=== PATIENT | female | born 2000 | race African-American/Black ===

== ENCOUNTER 2022-11-12 21:45 | Emergency (ER) | payer BC ==
[2022-11-12] MEDS ORDERED: diphenhydrAMINE 50 MG/ML SDV IVPUSH ONE (21:47)
[2022-11-12] MEDS ORDERED: Famotidine 20 MG/2 ML SDV IVPUSH ONE (21:47)
[2022-11-12] MEDS ORDERED: Sodium Chloride 0.9% 1,000 ML IV ONE (21:47)
[2022-11-12] MEDS ORDERED: methylPREDNISolone Sodium Succinate 125 MG/2 ML SDV IVPUSH ONE (21:47)
[2022-11-12] MEDS ORDERED: Ondansetron 4 MG/2 ML SDV IVPUSH ONE (21:56)
== END 2022-11-12 23:17 | disposition home or self-care (01) ==
LOC: MW.ED 21:45
DX: T78.1XXA Other adverse food reactions, not elsewhere classified, initial encounter (principal); Z91.018 Allergy to other foods
CPT/HCPCS: 96361; 96374; 96375; 99284; J1200; J2405; J2930; J3490; J7030

== ENCOUNTER 2023-10-12 21:48 | Emergency (ER) | payer OTHER ==
[2023-10-12] MEDS: Famotidine 20 MG Tab PO ONE (23:06)
[2023-10-12] MEDS: Cetirizine 10 MG Tab PO ONE (23:06)
[2023-10-12] MEDS: Dexamethasone 4 MG Tab PO ONE (23:46)
== END 2023-10-12 23:50 | disposition home or self-care (01) ==
LOC: MW.ED 21:48
DX: T78.40XA Allergy, unspecified, initial encounter (principal); Z91.013 Allergy to seafood; Z79.899 Other long term (current) drug therapy
CPT/HCPCS: 81025; 99283; A9270; J8540

== ENCOUNTER 2023-10-14 20:48 | Emergency (ER) | payer SELFPAY | END 2023-10-14 22:22 | disposition left against medical advice (07) | LOC: MW.ED 20:48 | DX: Z53.21 Procedure and treatment not carried out due to patient leaving prior to being seen by health care provider (principal) ==

== ENCOUNTER 2023-10-15 23:40 | Emergency (ER) | payer OTHER ==
[2023-10-16] MEDS: Mupirocin Oint 22 GM Tube TOP ONE (03:03)
[2023-10-16] MEDS: predniSONE 20 MG Tab PO ONE (03:03)
[2023-10-16] MEDS: diphenhydrAMINE 50 MG Cap PO ONE (03:03)
== END 2023-10-16 03:17 | disposition home or self-care (01) ==
LOC: MW.ED 23:40
DX: T78.40XA Allergy, unspecified, initial encounter (principal); Z79.899 Other long term (current) drug therapy; Z91.013 Allergy to seafood
CPT/HCPCS: 99283; A9270

== ENCOUNTER 2023-10-29 17:18 | Emergency (ER) | payer OTHER ==
[2023-10-29 17:34] LABS: BASOPHILS ABSOLUTE AUTO 0.07 K/uL (0.00-0.20); EOSINOPHILS ABSOLUTE AUTO 0.57 K/uL (0.00-0.45); EOSINOPHILS PERCENT AUTO 7.8 % (0.0-6.0); HEMATOCRIT 41.3 % (37.0-47.0); HEMOGLOBIN 14.2 g/dL (12.0-16.0); IMMATURE GRAN ABSOLUTE AUTO 0.02 K/uL (0.00-0.05); IMMATURE GRAN PERCENT AUTO 0.3 % (0.0-0.4); LYMPHOCYTES ABSOLUTE AUTO 2.43 K/uL (1.00-4.80); LYMPHOCYTES PERCENT AUTO 33.1 % (24.0-44.0); MEAN CORPUSCULAR HEMOGLOBIN 30.3 pg (28.0-32.0); MEAN CORPUSCULAR HGB CONC 34.4 g/dL (32.0-36.0); MEAN CORPUSCULAR VOLUME 88.1 fL (83.0-99.0); MEAN PLATELET VOLUME 11.3 fL (9.4-12.3); MONOCYTES ABSOLUTE AUTO 0.51 K/uL (0.00-0.80); MONOCYTES PERCENT AUTO 6.9 % (0.0-8.0); NEUTROPHILS ABSOLUTE AUTO 3.75 K/uL (1.80-7.70); NEUTROPHILS PERCENT AUTO 50.9 % (41.0-71.0); PLATELET COUNT,PLT 203 K/uL (150-400); RED BLOOD CELL COUNT 4.69 M/uL (4.10-5.30); WHITE BLOOD CELL COUNT,WBC 7.35 K/uL (3.9-11.3)
[2023-10-29] MEDS: Ketorolac 30 MG/ML SDV IVPUSH ONE (17:39)
[2023-10-29] MEDS: Ondansetron 4 MG/2 ML SDV IVPUSH ONE (17:40)
[2023-10-29] MEDS: Sodium Chloride 0.9% 1,000 ML IV ONE (17:40)
[2023-10-29 18:08] LABS: BLOOD UREA NITROGEN,BUN 6 mg/dL (7.0-18.0); CALCIUM 9.7 mg/dL (8.5-10.1); CARBON DIOXIDE,CO2 27.8 mmol/L (21.0-32.0); CHLORIDE,CL 101 mmol/L (98-107); CREATININE 0.7 mg/dL (0.6-1.0); EST CRCL DRUG DOSING (CG) 117.35 mL/min; GLUCOSE RANDOM 102 mg/dL (74-106); POTASSIUM,K 4.3 mmol/L (3.5-5.1); SODIUM,NA 138 mmol/L (136-145)
[2023-10-29 18:13] LABS: ESTIMATED GFR 125 mL/min (>60)
== END 2023-10-29 19:12 | disposition home or self-care (01) ==
LOC: MW.ED 17:18
DX: R55 Syncope and collapse (principal); R07.9 Chest pain, unspecified; Z79.899 Other long term (current) drug therapy; Z91.013 Allergy to seafood; Z91.018 Allergy to other foods; Z75.8 Other problems related to medical facilities and other health care
CPT/HCPCS: 36415; 71045; 80048; 81025; 84484; 85025; 93005; 96361; 96374; 96375; 99285; J1885; J2405; J7030; 93010; 99284

== ENCOUNTER 2024-01-20 00:38 | Emergency (ER) | payer SELFPAY ==
[2024-01-20 01:07] LABS: BASOPHILS ABSOLUTE AUTO 0.05 K/uL (0.00-0.20); BASOPHILS PERCENT AUTO 0.5 % (0.0-1.0); EOSINOPHILS ABSOLUTE AUTO 0.61 K/uL (0.00-0.45); EOSINOPHILS PERCENT AUTO 6.5 % (0.0-6.0); HEMATOCRIT 41.6 % (37.0-47.0); HEMOGLOBIN 14.5 g/dL (12.0-16.0); IMMATURE GRAN ABSOLUTE AUTO 0.02 K/uL (0.00-0.05); IMMATURE GRAN PERCENT AUTO 0.2 % (0.0-0.4); LYMPHOCYTES ABSOLUTE AUTO 3.85 K/uL (1.00-4.80); LYMPHOCYTES PERCENT AUTO 41.1 % (24.0-44.0); MEAN CORPUSCULAR HEMOGLOBIN 30.5 pg (28.0-32.0); MEAN CORPUSCULAR HGB CONC 34.9 g/dL (32.0-36.0); MEAN CORPUSCULAR VOLUME 87.4 fL (83.0-99.0); MEAN PLATELET VOLUME 10.6 fL (9.4-12.3); MONOCYTES ABSOLUTE AUTO 0.82 K/uL (0.00-0.80); MONOCYTES PERCENT AUTO 8.8 % (0.0-8.0); NEUTROPHILS ABSOLUTE AUTO 4.01 K/uL (1.80-7.70); NEUTROPHILS PERCENT AUTO 42.9 % (41.0-71.0); PLATELET COUNT,PLT 260 K/uL (150-400); RED BLOOD CELL COUNT 4.76 M/uL (4.10-5.30); WHITE BLOOD CELL COUNT,WBC 9.36 K/uL (3.9-11.3)
[2024-01-20 01:22] LABS: CALCIUM 10.1 mg/dL (8.5-10.1); CARBON DIOXIDE,CO2 27.4 mmol/L (21.0-32.0); EST CRCL DRUG DOSING (CG) 69.65 mL/min; POTASSIUM,K 4.4 mmol/L (3.5-5.1)
[2024-01-20] MEDS: Acetaminophen 500 MG Tab PO ONE (01:50)
[2024-01-20] MEDS: Ketorolac 30 MG/ML SDV IVPUSH ONE (01:50)
[2024-01-20] MEDS: Ondansetron 4 MG/2 ML SDV IVPUSH ONE (01:50)
[2024-01-20] MEDS: Lidocaine/Epineph/Tetracaine 3 ML Syringe TOP ONE (02:27)
[2024-01-20] MEDS: Lidocaine 1% with EPINEPHrine 1:100,000 10 ML MDV INJECT ONE (03:48)
== END 2024-01-20 04:31 | disposition home or self-care (01) ==
LOC: MW.ED 00:38
DX: S01.01XA Laceration without foreign body of scalp, initial encounter (principal); S41.111A Laceration without foreign body of right upper arm, initial encounter; Z79.899 Other long term (current) drug therapy; Z91.040 Latex allergy status; Z91.013 Allergy to seafood; Z91.048 Other nonmedicinal substance allergy status; W22.8XXA Striking against or struck by other objects, initial encounter
CPT/HCPCS: 12002; 36415; 70450; 72125; 80048; 84703; 85025; 96374; 96375; 99284; A9270; J1885; J2405; J3490

== ENCOUNTER 2024-02-04 18:29 | Emergency (ER) | payer OTHER | END 2024-02-04 18:51 | disposition left against medical advice (07) | LOC: MW.ED 18:29 | DX: Z48.02 Encounter for removal of sutures (principal) | CPT/HCPCS: 99281 ==

== ENCOUNTER 2025-01-02 20:25 | Emergency (ER) | payer OTHER ==
[2025-01-02 21:24] LABS: BASOPHILS ABSOLUTE AUTO 0.01 K/uL (0.00-0.20); BASOPHILS PERCENT AUTO 0.2 % (0.0-1.0); EOSINOPHILS ABSOLUTE AUTO 0.01 K/uL (0.00-0.45); EOSINOPHILS PERCENT AUTO 0.2 % (0.0-6.0); IMMATURE GRAN ABSOLUTE AUTO 0.01 K/uL (0.00-0.05); IMMATURE GRAN PERCENT AUTO 0.2 % (0.0-0.4); LYMPHOCYTES ABSOLUTE AUTO 0.50 K/uL (1.00-4.80); LYMPHOCYTES PERCENT AUTO 8.7 % (24.0-44.0); MEAN PLATELET VOLUME 11.3 fL (9.4-12.3); MONOCYTES ABSOLUTE AUTO 0.11 K/uL (0.00-0.80); MONOCYTES PERCENT AUTO 1.9 % (0.0-8.0); NEUTROPHILS ABSOLUTE AUTO 5.12 K/uL (1.80-7.70); NEUTROPHILS PERCENT AUTO 88.8 % (41.0-71.0); NRBC ABSOLUTE 0.00 K/uL (0.00-0.02); NRBC PERCENT 0.0 /100WBC (0.0-0.2); PLATELET COUNT,PLT 123 K/uL (150-400); RED BLOOD CELL COUNT 4.56 M/uL (4.10-5.30); WHITE BLOOD CELL COUNT,WBC 5.76 K/uL (3.9-11.3)
[2025-01-02 21:47] LABS: LACTIC ACID 1.5 mmol/L (0.4-2.0)
[2025-01-02 21:53] LABS: A/G RATIO 0.8 (0.9-1.6); ALANINE AMINOTRANSFERASE,ALT 21.0 IU/L (14-63); ASPARTATE AMNIOTRANSFERASE,AST 37.0 IU/L (15-37); BILIRUBIN TOTAL 0.6 mg/dL (0.2-1.0); BLOOD UREA NITROGEN,BUN 10.0 mg/dL (7.0-18.0); CARBON DIOXIDE,CO2 24.6 mmol/L (21.0-32.0); CHLORIDE,CL 99.0 mmol/L (98-107); CREATININE 1.0 mg/dL (0.6-1.0); EST CRCL DRUG DOSING (CG) 84.58 mL/min; GLUCOSE RANDOM 107.0 mg/dL (74-106); POTASSIUM,K 3.3 mmol/L (3.5-5.1); PROTEIN TOTAL,TP 8.5 g/dL (6.4-8.2); SODIUM,NA 136.0 mmol/L (136-145)
[2025-01-02 22:07] LABS: ESTIMATED GFR 81.0 mL/min (>60)
[2025-01-02 22:29] LABS: APPEARANCE,URINE SLT CLOUDY; GLUCOSE,URINE NEGATIVE (NEGATIVE); OCCULT BLOOD,URINE LARGE (NEGATIVE)
[2025-01-02] MEDS: Potassium Chloride 20 MEQ Tab.ER PO ONE (22:37)
[2025-01-02 22:40] LABS: EPITHELIAL CELLS,URINE FEW (NONE-FEW)
[2025-01-02 23:08] LABS: INR 1.06 (0.86-1.11); PTT,PARTIAL THROMBOPLSTIN TIME 31.4 SEC (23.9-30.7)
[2025-01-02 23:10] LABS: D-DIMER QUANTITATIVE 5.78 mg/L FEU (0.00-0.50)
== END 2025-01-03 00:53 ==
LOC: MW.ED 20:25
DX: R65.10 Systemic inflammatory response syndrome (SIRS) of non-infectious origin without acute organ dysfunction (principal); Z91.040 Latex allergy status; Z91.013 Allergy to seafood
CPT/HCPCS: 71045; 80053; 81001; 81025; 83605; 83690; 83735; 84145; 85025; 85379; 85384; 85610; 85652; 85730; 86140; 86308; 87040; 87428; 87651; 96360; 96361; 99285; A9270; J7030; 99284